=== PATIENT | male | born 1995 | race African-American/Black ===

== ENCOUNTER 2019-11-20 14:03 | Emergency (ER) | payer OTHER ==
[~2019-11-20] VITALS: Ht 172.7 cm; Wt 54.4 kg
[2019-11-20 15:55] VITALS: BP 129/66
== END 2019-11-20 16:00 | disposition home or self-care (01) ==
LOC: ER 14:03
DX: S01.511A Laceration without foreign body of lip, initial encounter (principal); D57.1 Sickle-cell disease without crisis; Y04.0XXA Assault by unarmed brawl or fight, initial encounter; Y93.89 Activity, other specified; Y92.89 Other specified places as the place of occurrence of the external cause; Y99.8 Other external cause status